=== PATIENT | female | born 1950 | race Two or more races ===

== ENCOUNTER 2017-11-19 15:48 | Emergency (ER) | payer SELFPAY ==
[~2017-11-19] VITALS: Ht 152.4 cm; Wt 72.6 kg
[2017-11-19] MEDS ORDERED: IV NORMAL SALINE 1000ML BAG 1,000 ML IV ONE (18:30)
[2017-11-19] MEDS ORDERED: FAMOTIDINE 20 MG/2 ML VIAL IVP ONE (18:30)
[2017-11-19] MEDS ORDERED: ONDANSETRON PF 4 MG/2 ML VIAL. IV ONE (18:30)
[2017-11-19 18:38] LABS: BILIRUBIN,URINE MODERATE (NEG); CLARITY,URINE CLEAR; COLOR,URINE AMBER; NITRITE,URINE NEGATIVE (NEG); PROTEIN,URINE 30 mg/dL (NEG-TRACE)
[2017-11-19] MEDS ORDERED: IOHEXOL 240 MG/ML 50ML VIAL. PO ONE (18:45)
[2017-11-19] MEDS ORDERED: CONTRAST GIVEN. MC PRN (18:45)
[2017-11-19] MEDS ORDERED: IOHEXOL 300 MG/ML 100ML VIAL. IV ONE (18:45)
--- NOTE | 2017-11-19 18:59 | PHYS DOC ---
Past Medical History Past Medical History: Hypertension Past Surgical History: Hysterectomy Alcohol Use: None Drug Use: None Adult General Chief Complaint Chief Complaint: ABDOMINAL PAIN HPI HPI Patient is a 67 year old female with PMHx of HTN presenting with 3 days of abdominal pain. Pt notes pain is located in the RUQ and epigastric region and describes pain as achy pain that was worst on the first day but has been constantly present since onset. Pt notes only aggravating factor is sitting up and pain is somewhat alleviated lying down. Pt notes associated nonbloody, nonbilious emesis and she has not been able to eat a full meal since the onset of symptoms. Pt notes she felt feverish on the first day of symptoms but has not felt fevers or chills since Sunday. Pt denies diarrhea, constipation, SOB , chest pain, dysuria, urinary frequency or urgency. Pt notes the pain radiated initially to her back and R shoulder but denies radiation since Sunday. Review of Systems Review of Systems Constitutional: Notes fever and chills [] Eyes: Denies change in visual acuity, redness, or eye pain [] HENT: Denies nasal congestion or sore throat [] Respiratory: Denies cough or shortness of breath [] Cardiovascular: Denies chest pain or palpitations[] GI: Notes abdominal pain, nausea, vomiting, Denies bloody stools or diarrhea [] : Denies dysuria or hematuria [] Musculoskeletal: Notes back pain, denies joint pain [] Integument: Denies rash or skin lesions [] Neurologic: Denies headache, focal weakness or sensory changes [] ] Complete systems were reviewed and found to be within normal limits, except as documented in this note. Current Medications Current Medications Current Medications Medications (Trade) Dose Ordered Sig/Radha Start Time Stop Time Status Last Admin Dose Admin Ceftriaxone Sodium 50 ml @ 100 mls/hr 1X ONCE 11/19/17 19:45 11/19/17 20:14 DC 11/19/17 19:55 100 MLS/HR Famotidine (Pepcid Vial) 20 mg 1X ONCE 11/19/17 18:30 11/19/17 18:31 DC 11/19/17 19:55 20 MG Info (CONTRAST GIVEN -- Rx MONITORING) 1 each PRN DAILY PRN 11/19/17 18:45 11/19/17 22:09 DC Iohexol (Omnipaque 240 Mg/ml) 50 ml 1X ONCE 11/19/17 18:45 11/19/17 18:46 DC 11/19/17 18:45 50 ML Iohexol (Omnipaque 300 Mg/ml) 75 ml 1X ONCE 11/19/17 18:45 18 18:46 DC 11/19/17 18:45 75 ML Ondansetron HCl (Zofran) 4 mg 1X ONCE 11/19/17 18:30 11/19/17 18:31 DC 11/19/17 19:55 4 MG Sodium Chloride 1,000 ml @ 1,000 mls/hr 1X ONCE 11/19/17 18:30 11/19/17 19:29 DC 11/19/17 19:54 1,000 MLS/HR Allergies Allergies Allergies Coded Allergies Type Severity Reaction Last Updated Verified No Known Drug Allergies 11/19/17 No Physical Exam Physical Exam Constitutional: Well developed, well nourished, no acute distress, non-toxic appearance. [] HENT: Normocephalic, atraumatic, oropharynx moist, no oral exudates, nose normal. [] Eyes: PERRLA, EOMI, conjunctiva normal, no discharge. [] Neck: Normal range of motion, no tenderness, supple, no stridor. [] Cardiovascular:Heart rate regular rhythm, no murmur [] Lungs & Thorax: Bilateral breath sounds clear to auscultation [] Abdomen: Bowel sounds normal, soft, Epigastric and RUQ TTP, no masses, + Sanders' s sign. [] Skin: Warm, dry, no erythema, no rash. [] Back: No tenderness, no CVA tenderness. [] Extremities: No tenderness,, ROM intact, no edema. [] Neurologic: Alert and oriented X 3, normal motor function, normal sensory function, no focal deficits noted. [] Psychologic: Affect normal, judgement normal, mood normal. [] Current Patient Data Vital Signs Vital Signs Date Time Temp Pulse Resp B/P (MAP) Pulse Ox O2 Delivery O2 Flow Rate FiO2 11/19/17 20:18 9 23 139/75 (96) 96 Room Air 11/19/17 17:43 98.2 98.2 Lab Values Laboratory Tests Test 11/19/17 17:15 11/19/17 18:50 Urine Collection Type Void Urine Color [place] Urine Clarity Clear Urine pH 6.0 Urine Specific [place] >=1.030 Urine Protein 30 mg/dL (NEG-TRACE) Urine Glucose (UA) Negative mg/dL (NEG) Urine Ketones (Stick) >=80 mg/dL (NEG) Urine Blood Small (NEG) Urine Nitrite Negative (NEG) Urine Bilirubin Moderate (NEG) Urine Urobilinogen Dipstick 1.0 mg/dL (0.2 mg/dL) Urine Leukocyte Esterase Small (NEG) Urine RBC 1-2 /HPF (0-2) Urine WBC >40 /HPF (0-4) Urine Squamous Epithelial Cells Occ /LPF Urine Bacteria Moderate /HPF (0-FEW) Urine Mucus Mod /LPF White Blood Count 12.2 x10^3/uL (4.0-11.0) H Red Blood Count 4.26 x10^6/uL (3.50-5.40) Hemoglobin 14.0 g/dL (12.0-15.5) Hematocrit 40.5 % (36.0-47.0) Mean Corpuscular Volume 95 fL (79-100) Mean Corpuscular Hemoglobin 33 pg (25-35) Mean Corpuscular Hemoglobin Concent 35 g/dL (31-37) Red Cell Distribution Width 13.0 % (11.5-14.5) Platelet Count 354 x10^3/uL (140-400) Neutrophils (%) (Auto) 78 % (31-73) H Lymphocytes (%) (Auto) 16 % (24-48) L Monocytes (%) (Auto) 6 % (0-9) Eosinophils (%) (Auto) 0 % (0-3) Basophils (%) (Auto) 0 % (0-3) Neutrophils # (Auto) 9.6 x10^3uL (1.8-7.7) H Lymphocytes # (Auto) 2.0 x10^3/uL (1.0-4.8) Monocytes # (Auto) 0.7 x10^3/uL (0.0-1.1) Eosinophils # (Auto) 0.0 x10^3/uL (0.0-0.7) Basophils # (Auto) 0.0 x10^3/uL (0.0-0.2) Prothrombin Time 13.6 SEC (11.7-14.0) Prothrombin Time INR 1.1 (0.8-1.1) PTT 34 SEC (24-38) Sodium Level 137 mmol/L (136-145) Potassium Level 4.0 mmol/L (3.5-5.1) Chloride Level 99 mmol/L (98-107) Carbon Dioxide Level 25 mmol/L (21-32) Anion Gap 13 (6-14) Blood Urea Nitrogen 14 mg/dL (7-20) Creatinine 0.5 mg/dL (0.6-1.0) L Estimated GFR (Cockcroft-Gault) 122.3 BUN/Creatinine Ratio 28 (6-20) H Glucose Level 80 mg/dL (70-99) Lactic Acid Level 1.3 mmol/L (0.4-2.0) Calcium Level 9.9 mg/dL (8.5-10.1) Total Bilirubin 1.0 mg/dL (0.2-1.0) Aspartate Amino Transferase (AST) 36 U/L (15-37) Alanine Aminotransferase (ALT) 117 U/L (14-59) H Alkaline Phosphatase 108 U/L (46-116) Creatine Kinase 26 U/L (26-192) Creatine Kinase MB (Mass) < 0.5 ng/mL (0.0-3.6) Creatine Kinase MB Relative Index % (0-4) Troponin I Quantitative < 0.017 ng/mL (0.000-0.055) Total Protein 8.7 g/dL (6.4-8.2) H Albumin 3.5 g/dL (3.4-5.0) Albumin/Globulin Ratio 0.7 (1.0-1.7) L Lipase 1006 U/L (73-393) H Laboratory Tests 11/19/17 18:50 Laboratory Tests 11/19/17 18:50 EKG EKG Sinus rhythm rate 88 NJ 118 QRS 80 QTc 441[. No acute ischemic changes noted. Q waves seen in leads I, II, and aVL] Radiology/Procedures Radiology/Procedures PROCEDURE: CT ABD PELV W/ORAL&IV CONTRAST CT scan of the abdomen and pelvis with contrast 11/19/2017 CLINICAL HISTORY: Right upper quadrant abdominal pain with nausea and vomiting. TECHNIQUE: After the oral and intravenous of contrast, contiguous, 5 mm axial sections were obtained through the abdomen and pelvis. 75 cc of Omnipaque 300 were administered intravenously during this examination. One or more of the following individualized dose reduction techniques were utilized for this study: 1. Automated exposure control. 2. Adjustment of the mA and/or kV according to patient size. 3. Use of iterative reconstruction technique. FINDINGS: No previous imaging studies are available for comparison. Images through the lung bases demonstrate mild cardiomegaly. Linear bands of subsegmental atelectasis are seen involving right middle lobe, the left upper lobe and both lower lobes. The liver parenchyma has a decreased attenuation consistent with mild fatty infiltration. The spleen, adrenal glands and kidneys are within normal limits. Fullness of the pancreas is seen. Increased density is seen within the fat surrounding the pancreas. These findings these findings likely reflect acute pancreatitis. No pancreatic pseudocyst is seen. The gallbladder is well-distended. Small noncalcified gallstones are seen within the gallbladder. No free fluid or free air is seen within the abdomen. There is no evidence of bowel obstruction. Images through the pelvis demonstrate the urinary bladder distended with urine. No free fluid is seen. Minimal S-shaped curvature of the thoracolumbar spine is seen. Degenerative changes are seen involving the lower thoracic and throughout the lumbar spine and both hips. IMPRESSION: Findings are seen suggestive of acute pancreatitis as outlined above. No pancreatic pseudocyst is seen. Electronically signed by: Yoandy Nguyen MD (11/19/2017 8:31 PM) [facility][] Course & Med Decision Making Course & Med Decision Making 67 yo female presenting with RUQ and epigastric pain for 3 days. Associated nausea, nb/nb emesis, and decreased appetite. Denies diarrhea, sx, SOB, CP. Patient given 1 L and S bolus, Pepcid, Zofran. Labs and urine collected and evaluated. Significant lipase 1006, ALT 117, WBC 12.4, and UA that shows UTI. CT abdomen and pelvis was obtained and shows evidence of acute pancreatitis without pseudocyst formation, and evidence of noncalcified gallstones. She given 1 g Rocephin IV. Discussed findings with patient and family and that admission to the hospital is advised for further evaluation and treatment of pancreatitis. Patient initially reluctant to be admitted and notes that she would rather go home. [] Dragon Disclaimer Dragon Disclaimer This electronic medical record was generated, in whole or in part, using a voice recognition dictation system. Departure Departure Impression: Primary Impression: Pancreatitis Additional Impressions: UTI (urinary tract infection) Left against medical advice Disposition: 07 AGAINST MEDICAL ADVICE Condition: GUARDED Referrals: NO PCP (PCP) NESHA SULLIVAN MD Patient Instructions: Acute Pancreatitis, Discharge Against Medical Advice, Urinary Tract Infection, Puns-lg-Gler Scripts Cephalexin (KEFLEX) 500 Mg Capsule 500 MG PO TID for 7 Days, #21 CAP Prov: NESHA KELLEY DO 11/19/17 Famotidine (PEPCID) 20 Mg Tablet 20 MG PO BID, #20 TAB Prov: NESHA KELLEY DO 11/19/17 Hydrocodone/Apap 5-325 (NORCO 5-325 TABLET) 1 Each Tablet 1 TAB PO PRN Q6HRS PRN for PAIN, #14 TAB 0 Refills Prov: NESHA KELLEY DO 11/19/17 Ondansetron (ZOFRAN ODT) 4 Mg Tab.rapdis 1 TAB SL Q8HRS PRN for NAUSEA, #15 TAB Prov: NESHA KELLEY DO 11/19/17 Problem Qualifiers Primary Impression: Pancreatitis Chronicity: acute Pancreatitis type: unspecified pancreatitis type Acute pancreatitis complication: unspecified Qualified Codes: K85.90 - Acute pancreatitis without necrosis or infection, unspecified Additional Impressions: UTI (urinary tract infection) Urinary tract infection type: acute cystitis Hematuria presence: without hematuria Qualified Codes: N30.00 - Acute cystitis without hematuria NESHA KELLEY DO Nov 19, 2017 18:59
[2017-11-19 19:01] LABS: BACTERIA,URINE MODERATE /HPF (0-FEW); SQUAMOUS EPITHELIAL CELL,UR OCC /LPF; WBC,URINE >40 /HPF (0-4)
[2017-11-19 19:01] LABS: BASO % 0 % (0-3); EOS % 0 % (0-3); HEMATOCRIT 40.5 % (36.0-47.0); LYMPH % 16 % (24-48); MEAN CORPUSCULAR HEMOGLOBIN 33 pg (25-35); MEAN CORPUSCULAR HGB CONC 35 g/dL (31-37); MEAN CORPUSCULAR VOLUME 95 fL (79-100); MONO # 0.7 x10^3/uL (0.0-1.1); MONO % 6 % (0-9); NEUT # 9.6 x10^3uL (1.8-7.7); NEUT % 78 % (31-73); PLATELET COUNT 354 x10^3/uL (140-400); RED BLOOD COUNT 4.26 x10^6/uL (3.50-5.40); WHITE BLOOD COUNT 12.2 x10^3/uL (4.0-11.0)
[2017-11-19 19:12] LABS: PROTHROMBIN TIME PATIENT 13.6 SEC (11.7-14.0)
[2017-11-19 19:16] LABS: CALCIUM 9.9 mg/dL (8.5-10.1); CREATININE 0.5 mg/dL (0.6-1.0); GFR 122.3
[2017-11-19 19:30] LABS: ALBUMIN 3.5 g/dL (3.4-5.0); ALBUMIN/GLOBULIN RATIO 0.7 (1.0-1.7); TOTAL PROTEIN 8.7 g/dL (6.4-8.2)
[2017-11-19 19:32] LABS: CREATINE KINASE 26 U/L (26-192)
[2017-11-19 20:18] VITALS: BP 139/75
--- NOTE | 2017-11-19 20:34 | RAD ---
CT scan of the abdomen and pelvis with contrast 11/19/2017 CLINICAL HISTORY: Right upper quadrant abdominal pain with nausea and vomiting. TECHNIQUE: After the oral and intravenous of contrast, contiguous, 5 mm axial sections were obtained through the abdomen and pelvis. 75 cc of Omnipaque 300 were administered intravenously during this examination. One or more of the following individualized dose reduction techniques were utilized for this study: 1. Automated exposure control. 2. Adjustment of the mA and/or kV according to patient size. 3. Use of iterative reconstruction technique. FINDINGS: No previous imaging studies are available for comparison. Images through the lung bases demonstrate mild cardiomegaly. Linear bands of subsegmental atelectasis are seen involving right middle lobe, the left upper lobe and both lower lobes. The liver parenchyma has a decreased attenuation consistent with mild fatty infiltration. The spleen, adrenal glands and kidneys are within normal limits. Fullness of the pancreas is seen. Increased density is seen within the fat surrounding the pancreas. These findings these findings likely reflect acute pancreatitis. No pancreatic pseudocyst is seen. The gallbladder is well-distended. Small noncalcified gallstones are seen within the gallbladder. No free fluid or free air is seen within the abdomen. There is no evidence of bowel obstruction. Images through the pelvis demonstrate the urinary bladder distended with urine. No free fluid is seen. Minimal S-shaped curvature of the thoracolumbar spine is seen. Degenerative changes are seen involving the lower thoracic and throughout the lumbar spine and both hips. IMPRESSION: Findings are seen suggestive of acute pancreatitis as outlined above. No pancreatic pseudocyst is seen. Electronically signed by: Yoandy Nguyen MD (11/19/2017 8:31 PM) [facility]
[2017-11-19] MEDS ORDERED: FAMO-63 PO (22:00)
[2017-11-19] MEDS ORDERED: ONDA4TAB10 SL (22:00)
[2017-11-19] MEDS ORDERED: HYDR-971 PO (22:00)
[2017-11-19] MEDS ORDERED: CEPH-264 PO (22:02)
--- NOTE | 2017-11-20 06:22 | EKG ---
[facility] [address] [place] [address] Test Date: 2017-11-19 Test Time: 19:02:21 Pat Name: VÍCTOR HELTON Department: Room: Gender: F Spring Intern: : 1950 Requested By: NESHA KELLEY Order Number: [id number] Reading MD: Rafael Juarez MD Measurements Intervals [place] Rate: 88 P: -35 OR: 118 QRS: 1 QRSD: 80 T: 1 QT: 362 QTc: 441 Interpretive Statements SINUS RHYTHM Electronically Signed On 11-20-2017 12:49:32 CDT by Rafael Juarez MD
== END 2017-11-19 22:01 | disposition left against medical advice (07) ==
LOC: ER 15:48
DX: K85.90 Acute pancreatitis without necrosis or infection, unspecified (principal); N39.0 Urinary tract infection, site not specified; I10 Essential (primary) hypertension; Z90.710 Acquired absence of both cervix and uterus
CPT/HCPCS: 36415; 74177; 80053; 81001; 82553; 83605; 83690; 84484; 85025; 85610; 85730; 93005; 96365; 96375; 99285; J0690; J2405; J7030; Q9966; Q9967; S0028; 87086